=== PATIENT | female | born 1945 | race Caucasian/White ===

== ENCOUNTER 2019-12-30 17:50 | Inpatient (IN) | payer MEDICARE, OTHER ==
[~2019-12-30] VITALS: Ht 149.9 cm; Wt 61.7 kg
--- NOTE | 2019-12-30 19:00 | NUR ---
Patient BIB pvt ambulance from [facility] [place] [facility] Patient A/Ox4. Speech is clear, speaks in complete sentences. Patient is on a 5150 for DTS. Patient supposedly was found outside of her house unconcious and was brought to the nearest ER via EMS. Patient reportedly took 15 tablets of Trazadone 50mg. No respiratory distress noted, all pulses palpable. No cardiovascular distress noted, all pulses palpable. Denies any n/v/d or any gu distress. Patient in bed at lowest position, sr upx2, items removed from room for safety precautions and belongings placed at nurses station. Denies any SI/HI A/V hallucinations at this time.
[2019-12-30] MEDS ORDERED: MAG HYDROX/AL HYDROX/SIMETH 30 ML LIQUID UDC PO PRN (20:45)
[2019-12-30] MEDS ORDERED: MAGNESIUM HYDROXIDE 30 ML LIQUID UDC PO PRN (20:45)
[2019-12-30 20:51] VITALS: BP 161/69
--- NOTE | 2019-12-30 21:05 | NUR ---
Report given to Rosa. Patient transferred to MHU in stable condition.
--- NOTE | 2019-12-31 00:06 | NUR ---
GPS/Rn - 74 y/o female admitted to MHU under the care of Dr. Galindo and Dr. Ortiz. Pt was brought in by ER staff via W/C. Pt on 5150 hold for GD with Dx of Psychosis. According to hold pt was found unresponsive outside of her home after consuming excessive amounts of alcohol and ingesting about 15 tablets of Trazodone 50mg in attempt to kill herself. Pt also have history of suicidal attempt twice in the past per Ex- due to the lost of her love once. Pt is admitted due continue SI ideation commit. Upon face to face assessment/interview, Pt is a/ox4, able to verbalize what happened and why she took meds. Pt is very remorseful and said she did not want to kill herself but was to end the pain, at this time pt is cooperative and cognitively aware of hospitalization. Hx of Major depression, Alcohol and substance abuse, Hypothyroidism. Lab ordered for Am, will f/up. Pt ambulatory but noted some weakness and warbling when walking. Covid - 19, negative. Patient Rights handbook and Advisement given, unit rules explained and pt signed all admission papers, took a shower and ate snack before going to bed. Pt will be monitor per SI ideation and Q/15mins head count initiated.
[2019-12-31] MEDS: LORAZEPAM 0.5 MG TABLET PO PRN ×3 (05:47→10:40)
--- NOTE | 2019-12-31 06:05 | NUR ---
Robbie Melchor paged through [employer] regarding med recon, he stated he would reconcile.
[2019-12-31 09:12] LABS: THYROID STIMULATING HORMONE 1.786 mIU/mL (0.358-3.740)
--- NOTE | 2019-12-31 10:06 | NUR ---
Followed up regarding patient vaccine record, called [facility] at [phone], patient Flu vaccine was at 11/09/19 and her PNA vaccine was at 05/30/19
[2019-12-31 10:07] VITALS: BP 120/65
--- NOTE | 2019-12-31 10:53 | NUR ---
SW Initial Discharge: Patient currently lives at home [address] [place] [address]; ([phone]). Patient would want to return back home. This bid writer contacted pt's ex- Jimmie ([phone]) and the number is disconnected. This bid writer will work with the MD and Treatment team.
--- NOTE | 2019-12-31 10:54 | NUR ---
Family Contact: This copywriter contacted pt's ex- Jimmie ([phone]) and the number is disconnected.
--- NOTE | 2019-12-31 10:58 | NUR ---
Firearms DOJ: Used Car Make Ready Mechanic completed and submitted a DP[employer] firearms report for 5150 grave disability certification. A copy of report has been placed in patient chart.
--- NOTE | 2019-12-31 11:17 | NUR ---
Substance Abuse Intervention: Patient was provided with a brief substance abuse intervention and provided resources: [facility] ([phone]), [facility] ([phone]), and [facility] ([phone]).
[2019-12-31] MEDS: GABAPENTIN 100 MG CAPSULE PO SCH ×2 (13:56→16:39)
[2019-12-31 16:35] VITALS: BP 148/67
--- NOTE | 2019-12-31 19:40 | NUR ---
GPS: Pt.was asked by this typewriter assembler about her vaccination status. Pt.said she just had her Flu/PNA vaccines few months ago. Pt.insists that her vaccinations are current/up to date.
[2019-12-31 20:17] VITALS: BP 146/70
[2019-12-31] MEDS ORDERED: MIRTAZAPINE 15 MG TABLET PO SCH (21:00)
[2019-12-31] MEDS: ZOLPIDEM 5 MG TABLET PO PRN (22:03)
[2020-01-01 07:30] VITALS: BP 137/72
[2020-01-01] MEDS: ESCITALOPRAM OXALATE 10 MG TABLET PO SCH (08:09)
[2020-01-01] MEDS: GABAPENTIN 100 MG CAPSULE PO SCH ×3 (08:09→17:14)
[2020-01-01] MEDS: LORAZEPAM 0.5 MG TABLET PO PRN (09:50)
[2020-01-01] MEDS ORDERED: SUMATRIPTAN SUCCINATE 50 MG TABLET PO PRN (12:15)
--- NOTE | 2020-01-01 13:10 | NUR ---
SNF Referral: This law writer sent pt's clinicals to [facility] for [facility] and will let this law writer know if pt is accepted. This law writer sent in H & P notes, medication list, and labs.
[2020-01-01] MEDS: SUMATRIPTAN SUCCINATE 50 MG TABLET PO PRN (13:49)
--- NOTE | 2020-01-01 14:25 | NUR ---
Discharge Plan: Pt is accepted at [facility]. This group underwriter was contacted by [employer] ([phone]).
[2020-01-01 16:00] VITALS: BP 155/73
--- NOTE | 2020-01-01 18:58 | NUR ---
patient is A/O x3 with flat effect,stay in bed most of shift,refused to attend group activity ,denies any SI,will continue close monitoring..
[2020-01-01 20:30] VITALS: BP 135/69
[2020-01-01] MEDS: MIRTAZAPINE 15 MG TABLET PO SCH (21:09)
[2020-01-01] MEDS: ZOLPIDEM 5 MG TABLET PO PRN (22:06)
--- NOTE | 2020-01-01 22:44 | NUR ---
Patient received in bed awake. Patient complaint with medication. Patient denies any plan to hurt herself. Patient is isolative and withdrawn, will continue to monitor. Patient denies pain at this time, will continue to montior. Bed in lowest position, bed locked, and bed alarm on while in bed
[2020-01-02] MEDS: LORAZEPAM 0.5 MG TABLET PO PRN (01:53)
[2020-01-02 07:30] VITALS: BP 143/69
[2020-01-02] MEDS: GABAPENTIN 100 MG CAPSULE PO SCH ×3 (09:46→17:55)
[2020-01-02] MEDS: ESCITALOPRAM OXALATE 10 MG TABLET PO SCH (09:46)
[2020-01-02] MEDS: SUMATRIPTAN SUCCINATE 50 MG TABLET PO PRN (12:40)
--- NOTE | 2020-01-02 14:27 | NUR ---
Gps/Cdl Driver- Complained of migraine H/A i imitrex 50 mg given po. , verbalized adequate relief. Participated in hier P.T. Also encouraged attending her group therapy, making her needs known , safety reviewed emphasized.
[2020-01-02 16:00] VITALS: BP 147/67
[2020-01-02] MEDS ORDERED: LEVO25TA9 PO (18:35)
[2020-01-02] MEDS ORDERED: TRAZ-182 PO (18:35)
[2020-01-02] MEDS ORDERED: BUPR100T6 PO (18:35)
[2020-01-02] MEDS ORDERED: LOSA1TAB36 PO (18:35)
[2020-01-02] MEDS ORDERED: ATOR10TA PO (18:35)
[2020-01-02 20:00] VITALS: BP 158/83
[2020-01-02] MEDS: MIRTAZAPINE 15 MG TABLET PO SCH (20:24)
[2020-01-03 07:30] VITALS: BP 126/66
[2020-01-03] MEDS: ESCITALOPRAM OXALATE 10 MG TABLET PO SCH (08:24)
[2020-01-03] MEDS: GABAPENTIN 100 MG CAPSULE PO SCH ×3 (08:24→16:17)
--- NOTE | 2020-01-03 11:59 | NUR ---
ТАТЬЯНА PC Hearing: Patient had probable cause hearing today and it was upheld for grave disability.
[2020-01-03 16:00] VITALS: BP 153/72
[2020-01-03 20:00] VITALS: BP 108/79
[2020-01-03] MEDS: MIRTAZAPINE 15 MG TABLET PO SCH (20:51)
[2020-01-03] MEDS: SUMATRIPTAN SUCCINATE 50 MG TABLET PO PRN (23:58)
--- NOTE | 2020-01-04 06:12 | NUR ---
GPS/Rn - Pt was noted ambulating with no excessive behavior, cooperative with medication and staffs. Pt c/o migraine headache and PRN imitex and report some effect. Continue monitor during night, safety precaution in place.
[2020-01-04 07:30] VITALS: BP 118/59
[2020-01-04] MEDS: ESCITALOPRAM OXALATE 10 MG TABLET PO SCH (08:53)
[2020-01-04] MEDS: GABAPENTIN 100 MG CAPSULE PO SCH ×3 (08:53→17:28)
[2020-01-04] MEDS: SUMATRIPTAN SUCCINATE 50 MG TABLET PO PRN (15:19)
[2020-01-04 16:45] VITALS: BP 122/68
[2020-01-04 20:00] VITALS: BP 167/92
[2020-01-04] MEDS: ACETAMINOPHEN 325 MG TABLET PO PRN (20:03)
[2020-01-04] MEDS: LORAZEPAM 0.5 MG TABLET PO PRN ×2 (20:03→20:14)
[2020-01-04] MEDS: MIRTAZAPINE 15 MG TABLET PO SCH (20:04)
--- NOTE | 2020-01-04 20:30 | NUR ---
Pharmacy Note; Patient asked for a PRN Ativan . Screen Vent Binder removed medication and when opening the package the pill went flying out. This technical proposal writer, another nurse and the charge nurse witnessed what happened , and spent time looking for this medication and it was nowhere to be found. Screen Vent Binder and charge nurse entered it as wasted in the PIX[employer]. Just after that ,the pill was found right under the edge of the keyboard on the computer. Medication was administered, but technical proposal writer was unable to undue the waste. Pharmacy will be notified in the am.
[2020-01-04 21:04] VITALS: BP 166/77
--- NOTE | 2020-01-05 05:56 | NUR ---
Patient slept well last night. 8.45 hours. Earlier in the shift patients blood pressure noted 167/92. After being medicated, patients blood pressure recheck was 158/77. Continuing to monitor and treat if needed. Patient denies having a headache at this time . Will endorse to on coming shift. No acute distress noted at this time.
[2020-01-05] MEDS: SUMATRIPTAN SUCCINATE 50 MG TABLET PO PRN ×2 (06:14→20:26)
[2020-01-05 07:56] VITALS: BP 142/60
[2020-01-05] MEDS: ESCITALOPRAM OXALATE 10 MG TABLET PO SCH (08:52)
[2020-01-05] MEDS: GABAPENTIN 100 MG CAPSULE PO SCH ×3 (08:52→16:26)
[2020-01-05] MEDS ORDERED: CLONIDINE HCL 0.1 MG TABLET PO PRN (16:45)
[2020-01-05 16:55] VITALS: BP 155/80
[2020-01-05] MEDS: MIRTAZAPINE 15 MG TABLET PO SCH (20:26)
[2020-01-05 21:17] VITALS: BP 136/61
[2020-01-06 07:30] VITALS: BP 147/71
[2020-01-06] MEDS: GABAPENTIN 100 MG CAPSULE PO SCH ×3 (08:14→16:50)
[2020-01-06] MEDS: ESCITALOPRAM OXALATE 10 MG TABLET PO SCH (08:14)
[2020-01-06 15:17] VITALS: BP 130/59
[2020-01-06] MEDS: LORAZEPAM 0.5 MG TABLET PO PRN (19:42)
[2020-01-06] MEDS: MIRTAZAPINE 15 MG TABLET PO SCH (20:16)
[2020-01-06 20:51] VITALS: BP 148/67
[2020-01-07] MEDS: ZOLPIDEM 5 MG TABLET PO PRN (00:46)
[2020-01-07 07:30] VITALS: BP 153/95
[2020-01-07] MEDS: ESCITALOPRAM OXALATE 10 MG TABLET PO SCH (08:16)
[2020-01-07] MEDS: GABAPENTIN 100 MG CAPSULE PO SCH ×4 (08:17→20:14)
--- NOTE | 2020-01-07 14:39 | NUR ---
patient interacting fairly well with her roommate, compliant with routine meds, denies any pain or discomfort,, encouraged participation in her group .
[2020-01-07 16:14] VITALS: BP 148/72
[2020-01-07] MEDS ORDERED: GABAPENTIN 100 MG CAPSULE PO SCH (16:30)
[2020-01-07] MEDS: ACETAMINOPHEN 325 MG TABLET PO PRN (17:28)
[2020-01-07] MEDS: MIRTAZAPINE 15 MG TABLET PO SCH (20:14)
[2020-01-07 20:30] VITALS: BP 112/54
[2020-01-08 07:30] VITALS: BP 160/85
[2020-01-08] MEDS: ESCITALOPRAM OXALATE 10 MG TABLET PO SCH (09:00)
[2020-01-08] MEDS: SUMATRIPTAN SUCCINATE 50 MG TABLET PO PRN (09:47)
--- NOTE | 2020-01-08 10:01 | NUR ---
Sample collected and taken to lab for Covid19. Pt is asymptomatic at this time, discharge pending for tomorrow to assisted living.
--- NOTE | 2020-01-08 13:45 | NUR ---
SW Individual Intervention: This freelance writer met with pt to conduct brief therapy. Pt stated she will no longer drink and is motivated to change. Pt was open for this freelance writer to give resources for substance. Pt stated she is able to go to a nursing facility upon dc to "better herself". This freelance writer actively listened and provided support.
[2020-01-08 16:00] VITALS: BP 128/67
[2020-01-08] MEDS: ACETAMINOPHEN 325 MG TABLET PO PRN (16:39)
--- NOTE | 2020-01-08 16:53 | NUR ---
Pt received resting in bed, assessed, c/o headache, PRN Imitrex administered, and reported effective. Pt compliant with routine medications and care. Pt denies SI/HI with no AH/VH present. Pt able to CFS. Pt participated with activities as offered. Pt calm and cooperative. All needs promptly attended to throughout the shift. COVID19 test results returned Negative. PRN Tylenol and Catapres administered, BP160/85 and returning headache. Will continue to monitor and follow up accordingly.
[2020-01-08 20:00] VITALS: BP 114/57
[2020-01-08] MEDS: GABAPENTIN 100 MG CAPSULE PO SCH (21:04)
[2020-01-08] MEDS: MIRTAZAPINE 15 MG TABLET PO SCH (21:04)
--- NOTE | 2020-01-09 02:42 | NUR ---
Received patient in her room, calm, guarded and cooperative. Has poor insight, and poor judgement. Patient is focused on going home. Med compliant. No behavioral issue. Will remain in a psych facility for further evaluation and treatment.
[2020-01-09 07:30] VITALS: BP 116/78
--- NOTE | 2020-01-09 08:05 | NUR ---
SW Discharge Note: Patient will be discharged to fpc facility to [facility] [address] [place] [address]; ([phone]) via Ambulance transportation at 12:00pm. Supervisor Microwave spoke with Kusum, Professor Of Communication And Writing at [facility] ([phone]) who stated patient will be accepted at facility today. Patient is alert and oriented x1-2, and is not able to plan for self-care at this time, but is willing to accept care provided for her at the facility. Patient denies any suicidal or homicidal ideations. Patient is aware and agreeable with discharge plans. This senior mortgage underwriter contacted pts ex- ([phone]) but phone number is disconnected. Patient will continue to follow-up with her (psychiatrist) Dr. Galindo and (painter barrel) Dr. Garza at [facility]. Patient was provided referrals to the following substance abuse programs: [facility] ([phone]); [facility] [address] [place] [address] ([phone]); [place] [id number] [facility] [address] ([phone]); [facility] ([phone]); [facility] ([phone]); [facility] ([phone]); [facility] ([phone]). Patient presents with euthymic mood and congruent affect.
[2020-01-09] MEDS: ESCITALOPRAM OXALATE 10 MG TABLET PO SCH (08:25)
--- NOTE | 2020-01-09 13:38 | NUR ---
Gps/redye hand- called [facility], to give report to the unit , but unable at this time, facility receiving Nurse are not available, will call i at a later time, left message at the it help desk associate,, left tel.number
--- NOTE | 2020-01-09 14:35 | NUR ---
Gps/Automotive Internet Sales Manager- Called [facility] for the 3rd time , finally was able to give report to Nurse Area Sales Manager Earlene. Informed of leaf size picker time. All belongings given back to patient.
[2020-01-09] MEDS: SUMATRIPTAN SUCCINATE 50 MG TABLET PO PRN (15:02)
--- NOTE | 2020-01-09 15:03 | NUR ---
Gps/maintenance foreman- Discharged to [facility], via ambulance, in good spirit. All belongings and valuables given back to patient.In good spirit.
--- NOTE | 2020-01-09 15:04 | NUR ---
Patient is being discharged to [facility] via ambulance, pt is aware and willing to go. Report given. All belongings returned and paperwork signed. VS are stable, Pt is A/O x 3.
== END 2020-01-09 15:05 | DRG 885 ==
LOC: ER 17:50 → GPS 20:32
PROVIDERS: ADMIT Psychiatry & Neurology Psychosomatic Medicine
DX: F33.2 Major depressive disorder, recurrent severe without psychotic features (principal); E03.9 Hypothyroidism, unspecified; G43.909 Migraine, unspecified, not intractable, without status migrainosus; F41.9 Anxiety disorder, unspecified; J45.909 Unspecified asthma, uncomplicated; G44.309 Post-traumatic headache, unspecified, not intractable; Z72.89 Other problems related to lifestyle
CPT/HCPCS: 36415; 70450; 84443; A4663